=== PATIENT | male | born 1975 ===

== ENCOUNTER 2023-07-10 07:54 | Day surgery (SDC) | payer BC ==
[2023-07-09 16:32] LABS: Potassium 4.2 mEq/L (3.5-5.1)
[2023-07-09 16:38] LABS: Protime INR 1.05
[2023-07-10] MEDS ORDERED: NA CHLORIDE 0.9% 1,000 ML ONE (08:17)
[2023-07-10] MEDS ORDERED: propofoL 200 MG/20 ML VIAL IV ONE ×2 (09:03→09:31)
[2023-07-10] MEDS ORDERED: LIDOCAINE 1% MPF 2 ML AMPULE ONE (09:03)
[2023-07-10] MEDS ORDERED: ESMOLOL HCL 0 ML IV ONE (09:31)
[2023-07-10 11:18] VITALS: TEMP 98
[2023-07-10 11:23] VITALS: BP 122/81; O2SAT 100
--- NOTE | 2023-07-12 15:35 | EKG ---
Test Date: 2023-07-09 Test Time: 16:08:54 [employer]: FERCHO MEASUREMENT RESULTS: Intervals: Rate: 74 NE: 152 QRSD: 94 QT: 394 QTc: 437 [place]: P: 66 NE: 152 QRS: 4 T: 78 INTERPRETIVE STATEMENTS: Normal sinus rhythm with sinus arrhythmia Possible Inferior infarct, age undetermined Abnormal ECG No previous ECG available for comparison Electronically Signed On 07-12-23 15:31:46 CDT by Maxime Trores
== END 2023-07-10 10:20 | disposition home or self-care (01) ==
LOC: OR 07:54
PROVIDERS: ATTEND Surgery
PROC: 0DBN8ZX Excision of Sigmoid Colon, Via Natural or Artificial Opening Endoscopic, Diagnostic (ICD-10-PCS; 2023-07-10)
PROC: 0DBP8ZX Excision of Rectum, Via Natural or Artificial Opening Endoscopic, Diagnostic (ICD-10-PCS; 2023-07-10)
PROC: 0DBH8ZX Excision of Cecum, Via Natural or Artificial Opening Endoscopic, Diagnostic (ICD-10-PCS; principal; 2023-07-10 09:15)
DX: Z12.11 Encounter for screening for malignant neoplasm of colon (principal); N42.9 Disorder of prostate, unspecified; K64.8 Other hemorrhoids; K63.5 Polyp of colon
CPT/HCPCS: 93005; 80048; 36415; 85610; 82947; 88305; 85730; 45380; J2704 ×2; J7030